=== PATIENT | female | born 1965 | race Caucasian/White ===

== ENCOUNTER → 2023-10-11 06:39 | Outpatient (REF) | payer OTHER, SELFPAY | LOC: WDC 06:39 | PROVIDERS: ATTENDING PHYSICIAN Obstetrics & Gynecology Gynecology; FAMILY PHYSICIAN Family Medicine | DX: Z12.31 Encounter for screening mammogram for malignant neoplasm of breast (principal) | CPT/HCPCS: 77063; 77067 ==

== ENCOUNTER → 2024-04-18 12:40 | Outpatient (REF) | payer OTHER, SELFPAY | LOC: RAD 12:40 | PROVIDERS: ATTENDING PHYSICIAN Nurse Practitioner Adult Health; FAMILY PHYSICIAN Family Medicine | DX: R07.81 Pleurodynia (principal); R05.3 Chronic cough | CPT/HCPCS: 71111 ==

== ENCOUNTER 2024-08-13 06:25 | Day surgery (SDC) | payer OTHER, SELFPAY | END 2024-08-13 11:26 | disposition home or self-care (01) | LOC: GI 06:25 | PROVIDERS: ATTENDING PHYSICIAN Internal Medicine Gastroenterology | DX: K22.81 Esophageal polyp (principal); K22.89 Other specified disease of esophagus; K44.9 Diaphragmatic hernia without obstruction or gangrene; Z87.19 Personal history of other diseases of the digestive system | CPT/HCPCS: 43239; 88305; 88342 ==

== ENCOUNTER 2024-09-17 18:30 | Emergency (ER) | payer OTHER, SELFPAY ==
[2024-09-17 18:42] VITALS: BP 176/86
[2024-09-17 19:05] LABS: % Basophils 0.7 % (0-2); % Eosinophils 1.9 % (0-6); % Immature Granulocytes 0.2 % (0-0.5); % Lymphocytes 32.7 % (20.5-51.1); % Monocytes 5.4 % (1.7-9.3); % Neutrophils 59.1 % (42.2-75.2); Absolute Basophils 0.1 10^3/uL (0-0.2); Absolute Eosinophils 0.2 10^3/uL (0-0.7); Absolute Lymphocytes 2.7 10^3/uL (1.2-3.4); Absolute Monocytes 0.5 10^3/uL (0.1-0.6); Absolute Neutrophils 4.9 10^3/uL (1.4-6.5); Hematocrit 43.5 % (37.0-47.0); Hemoglobin 14.9 g/dL (12.0-16.0); Mean Corp Hgb Conc. 34.3 g/dL (33.0-37.0); Mean Corpuscular Hgb 28.9 pg (27.0-31.0); Mean Corpuscular Volume 84.5 fL (81.0-99.0); Mean Platelet Volume 8.9 fL (7.4-10.4); Nucleated Red Blood Cells % 0 %; Platelet Count 199 10^3/uL (130-400); Red Blood Cell Count 5.15 10^6/uL (4.20-5.40); Red Cell Dist. Width 12.2 % (11.5-14.5); White Blood Cell Count 8.3 10^3/uL (4.8-10.8)
[2024-09-17 19:26] LABS: Troponin I < 0.012 ng/ml
--- NOTE | 2024-09-17 19:32 | ED.GENMED ---
History of Present Illness
General
Chief Complaint: Heart Rate Problem
Time Seen by Provider: 09/17/24 19:32
History of Present Illness
History of Present Illness:
TIME OF INITIAL ENCOUNTER: 7:45 PM
HPI: Patient presents with a upper abdominal/chest burning that she suspects is related to heartburn. She has associated palpitations and nausea. She had a recent endoscopy which was relatively unremarkable. She has a known hiatal hernia. She is
no longer taking a PPI.
EXAM:
GENERAL: Well appearing in no distress, elevated BMI
HEENT: Moist oral mucosa
CARDIOVASCULAR: No murmurs, normal heart rate, regular rhythm, No chest wall tenderness
PULMONARY: No respiratory distress, breath sounds are clear and equal
ABDOMEN: Soft with no peritoneal signs, no tenderness
NEUROLOGIC: Excellent strength all extremities, no coordination deficits
PSYCHIATRIC: Appropriate mental status, normal insight and judgement
EXTREMITIES: Nontender, no edema, moves all extremities equally
SKIN: No rash, no lesions
NUMBER AND COMPLEXITY OF PROBLEMS ADDRESSED AT THE ENCOUNTER
� Chronic conditions affecting care: Hypothyroidism, has had cholecystectomy
� Acute Exacerbation and/or Progression of Chronic Illness: this is an acute problem
� Differential Diagnosis includes: Anxiety, GERD, esophagitis, doubt ACS, electrolyte abnormality, hiatal hernia
AMOUNT AND/OR COMPLEXITY OF DATA TO BE REVIEWED AND ANALYZED
� I performed an independent evaluation of and my interpretation is:
EKG: Sinus 62, left axis deviation, no acute ST abnormality
CT:
X-rays:
Laboratory Studies: CBC normal, chemistries unremarkable, troponin negative
Other:
� Review of other/old records: I reviewed the endoscopy report including negative biopsies and H. pylori negative last month
� Clinical information was obtained by an independent historian: None needed
� Prescriptions/Medications Considered but not given:
� Further testing considered but not performed: Consider repeat troponin however the patient's symptoms have been ongoing for over 12 hours without worsening symptoms and initial troponin EKG unremarkable.
RISK OF COMPLICATIONS AND/OR MORBIDITY OR MORTALITY OF PATIENT MANAGEMENT
� Social determinants of health affecting care: Lives at home, works at a school
� Discussion with other providers:
� Escalation of care including admission/observation vs risk of discharge considered: The patient appears very comfortable.
ANY OTHER UPDATES:
9:40 PM: On reassessment, patient overall feels improved after Pepcid and Carafate were given. Very low suspicion for ACS/cardiac etiology. She will resume PPI.
Past History
Past History
ED Past Medical History: Hypothyroidism and Other (Chronic vertigo)
ED Past Surgical History:
Social History
Tobacco: Non-smoker
Alcohol: None
Drug: None
Personal:
Living: with family
Employment: Other
Family History
Family History: Other
Phy Exam
Physical Exam
Physical Exam:
See HPI
Course
Orders/Labs/Results
Orders:
Orders
09/17/24 18:32
ECG [Electrocardiogram (*1)] Urgent
Reason for Study: Palpitations
EKG- Treatment ONCE
09/17/24 18:55
Complete Blood Count/With Diff Urgent
Comprehensive Metabolic Panel Urgent
Lipase Urgent
Troponin I Urgent
09/17/24 20:40
Famotidine [Pepcid] 40 mg PO NOW STA
Sucralfate Suspension [Carafate Suspension] 1 gm PO NOW STA
Abnormal Lab Results
09/17/24
18:55
BUN 19 H mg/dl
(7-17)
Calcium 10.5 H mg/dl
(8.4-10.2)
09/17/24 18:55
09/17/24 18:55
Vital Signs
Initial and Last Documented VS:
Initial Vital Signs
Temp Pulse Resp BP Pulse Ox
36.9 C 68 16 176/86 98
09/17/24 18:42 09/17/24 18:42 09/17/24 18:42 09/17/24 18:42 09/17/24 18:42
Last Documented Vital Signs
Temp Pulse Resp BP Pulse Ox
36.9 C 68 26 133/83 94
09/17/24 18:42 09/17/24 20:00 09/17/24 20:00 09/17/24 20:00 09/17/24 20:00
*Critical Care Note
Total Time (30-74mins, 75-104mins- exclusive of procedures): Not Applicable
ED Attending Note
-
Portions of this chart may have been created with voice recognition software.� Occasional wrong word or��sound alike� substitutions may have occurred due to the inherent limitations of voice recognition software.
Discharge Plan
Departure
Patient Disposition: Home (Routine Discharge)
Date of Disposition: 09/17/24
Time of Disposition: 21:38
Patient with high blood pressure during this ER visit?: Yes
Discharge Problem:
Chest pain due to GERD
Instructions: Acid reflux and GERD in adults, BLOOD PRESSURE
Prescriptions:
New
sucralfate [Carafate] 100 mg/mL suspension
10 ml PO ACHS PRN (Reason: reduction of transepidermal water loss) Qty: 200 0RF
No Action
dexamethasone 6 MG tablet
6 mg PO DAILY Qty: 6 0RF
Activity Restrictions/Additional Instructions:
Resume PPI. Cardiac blood work and EKG are normal. I am sending a prescription for Carafate to your pharmacy to try over the next few days. Use Pepcid for more immediate relief.
Interventions
Interventions:
*Risk Screen - Suicide Last Done: 09/17/24 18:42
*General Assessment Last Done: 09/17/24 20:09
*Neglect/Abuse Screening Last Done: 09/17/24 18:42
*ED COVID-19 Vaccine History Last Done: 09/17/24 20:09
ED- Cardiac Assessment Last Done: 09/17/24 20:09
ED- Pulmonary Assessment Last Done: 09/17/24 20:09
Discharge Date and Time
Print Language: STATELESS
[2024-09-17 19:35] LABS: ALT (SGPT) 22 U/L (0-35); AST (SGOT) 24 U/L (14-36); Albumin 4.7 g/dl (3.5-5.0); Alkaline Phosphatase 85 U/L (38-126); Blood Urea Nitrogen 19 mg/dl (7-17); Calcium 10.5 mg/dl (8.4-10.2); Carbon Dioxide 29 mmol/L (22-30); Chloride 101 mmol/L (98-107); Glucose 99 mg/dl (70-99); Potassium 4.2 mmol/L (3.5-5.1); Sodium 140 mmol/L (135-145); Total Bilirubin 0.8 mg/dl (0.2-1.3); Total Protein 7.1 g/dl (6.3-8.2); eGFR > 60.00
[2024-09-17 19:56] VITALS: BP 133/85
[2024-09-17 20:00] VITALS: BP 133/83
[2024-09-17 20:08] LABS: Lipase 96 U/L (23-300)
[2024-09-17] MEDS: PEPCID 40 MG PO (20:43)
[2024-09-17] MEDS: CARAFATE SUSPENSION 1 GM PO (20:43)
[2024-09-17 21:00] VITALS: BP 138/78
== END 2024-09-17 21:59 | disposition home or self-care (01) ==
LOC: EMR 18:30
PROVIDERS: Emergency Medicine; EMERGENCY PHYSICIAN Emergency Medicine
DX: K21.9 Gastro-esophageal reflux disease without esophagitis (principal); R07.89 Other chest pain; K44.9 Diaphragmatic hernia without obstruction or gangrene; E03.9 Hypothyroidism, unspecified; Z90.49 Acquired absence of other specified parts of digestive tract
CPT/HCPCS: 99284; 80053; 83690; 84484; 85025; 93005

== ENCOUNTER → 2024-10-16 06:59 | Outpatient (REF) | payer OTHER, SELFPAY | LOC: WDC 06:59 | PROVIDERS: ATTENDING PHYSICIAN Obstetrics & Gynecology Gynecology; FAMILY PHYSICIAN Family Medicine | DX: Z12.31 Encounter for screening mammogram for malignant neoplasm of breast (principal) | CPT/HCPCS: 77063; 77067 ==

== ENCOUNTER → 2025-01-02 14:00 | Outpatient (REF) | payer OTHER, SELFPAY | LOC: RCS 14:00 | PROVIDERS: ATTENDING PHYSICIAN Internal Medicine Critical Care Medicine; FAMILY PHYSICIAN Family Medicine | DX: I27.20 Pulmonary hypertension, unspecified (principal) | CPT/HCPCS: 93306 ==

== ENCOUNTER → 2025-01-03 10:27 | Outpatient (REF) | payer OTHER, SELFPAY | LOC: DHSLP 10:27 | PROVIDERS: ATTENDING PHYSICIAN Internal Medicine Critical Care Medicine; FAMILY PHYSICIAN Family Medicine | DX: G47.33 Obstructive sleep apnea (adult) (pediatric) (principal) | CPT/HCPCS: 95811 ==

== ENCOUNTER → 2025-02-12 07:18 | Outpatient (REF) | payer SELFPAY | LOC: RAD 07:18 | PROVIDERS: ATTENDING PHYSICIAN Nuclear Medicine Nuclear Cardiology; FAMILY PHYSICIAN Family Medicine | DX: E78.2 Mixed hyperlipidemia (principal); I10 Essential (primary) hypertension | CPT/HCPCS: 75571 ==